=== PATIENT | male | born 1975 | race Caucasian/White ===

== ENCOUNTER → 2021-03-11 | Emergency (ER) | payer OTHER ==
[~2021-03-11] VITALS: Ht 167.6 cm; Wt 68.0 kg
[~2021-03-11] MED LIST: CETAPHIL226 GM TOP; DIPROSONE OINT.15 GM TOP; MEDROLPACK PO; SYNTHROID75 MCG PO; VISTARIL50 MG PO
== END | disposition home or self-care (01) ==
LOC: ER 08:33
DX: L30.8 Other specified dermatitis (principal)